=== PATIENT | female | born 1995 | race African-American/Black ===

== ENCOUNTER 2021-03-24 10:07 | Inpatient (IN) | payer OTHER ==
[2021-03-24] MEDS: ELECTROLYTE-148 SOLN 1,000 ML IV SCH ×2 (11:00→17:07)
[2021-03-24] MEDS ORDERED: OXYTOCIN 30 UNITS in 0.9% NS 30 UNIT/500 ML INFUS.BAG IVPB SCH (11:30)
[2021-03-24 11:36] VITALS: BMI 34.1
[2021-03-24] MEDS ORDERED: FENTANYL/BUPIVACAINE/NS/PF - PCEA - 50 ML DISP.SYRIN EP ONE ×3 (12:02→19:30)
[2021-03-24] MEDS ORDERED: BUPIVACAINE HCL/PF 0.25% (2.5MG/ML) 10 ML VIAL ONE (12:16)
[2021-03-24] MEDS ORDERED: NALOXONE HCL 0.4 MG/ML VIAL IVPUSH PRN (12:41)
[2021-03-24] MEDS ORDERED: FENTANYL/BUPIVACAINE/NS/PF - PCEA - 50 ML DISP.SYRIN EP SCH ×2 (12:45→13:31)
[2021-03-24] MEDS ORDERED: ePHEDrine SULFATE 50 MG/1 ML AMPULE ONE ×2 (12:49→19:06)
[2021-03-24] MEDS ORDERED: OXYTOCIN 30 UNITS in 0.9% NS 30 UNIT/500 ML INFUS.BAG IVPB ONE (13:29)
[2021-03-24] MEDS ORDERED: LIDOCAINE HCL 1% PRESERVATIVE FREE - 30ML VIAL ONE (18:16)
[2021-03-24] MEDS ORDERED: OXYTOCIN 20 UNITS in 0.9% NS 20 UNIT/1,000 ML INFUS.BAG IV ONE (18:16)
[2021-03-24] MEDS ORDERED: morphine SULFATE/PF 1 MG/2 ML (2cc Syringe - QUVA) ONE (20:47)
[2021-03-24] MEDS ORDERED: PHENYLEPHRINE HCL 10 MG/1 ML SINGLE DOSE VIAL ONE (20:47)
[2021-03-24] MEDS ORDERED: CITRIC ACID/SODIUM CITRATE 30 ML UNIT-DOSE CUP PO ONE (20:50)
[2021-03-24] MEDS ORDERED: ceFAZolin SODIUM 1 GM VIAL ONE ×2 (21:06)
[2021-03-24] MEDS: OXYTOCIN 20 UNITS in 0.9% NS 20 UNIT/1,000 ML INFUS.BAG IV SCH (21:13)
[2021-03-24] MEDS ORDERED: METHYLERGONOVINE MALEATE 0.2 MG/1 ML AMP IM PRN (21:39)
[2021-03-24] MEDS ORDERED: ACETAMINOPHEN 325 MG TABLET (FP) PO PRN ×2 (21:39→21:40)
[2021-03-24] MEDS ORDERED: IBUPROFEN 600 MG TABLET (FP) PO PRN (21:40)
[2021-03-24] MEDS ORDERED: ONDANSETRON 4 MG/2 ML VIAL IVPUSH PRN (21:40)
[2021-03-24] MEDS: IBUPROFEN 800 MG/8 ML IJ IVPB PRN (22:53)
[2021-03-24] MEDS ORDERED: IBUPROFEN 800 MG/8 ML IJ IVPB ONE (22:53)
[2021-03-25] MEDS: FERROUS SO4 325 MG TABLET (FP) PO SCH ×3 (00:39→22:45)
[2021-03-25] MEDS: OXYTOCIN 20 UNITS in 0.9% NS 20 UNIT/1,000 ML INFUS.BAG IV SCH (06:06)
[2021-03-25 08:14] LABS: HEMATOCRIT 28.7 % (32.4-45.2); HEMOGLOBIN 9.8 GM/dL (10.7-15.3); LYMPH % 6.5 % (8-40); MCHC 34.2 g/dl (32.0-36.0); MEAN CELL VOLUME 87.6 fl (80-96); MEAN PLT VOLUME 7.1 fl (7.5-11.1); MONO % 5.3 % (3.8-10.2); NEUT % 88.2 % (42.8-82.8); PLATELET COUNT 203 10^3/uL (134-434); RBC 3.28 M/mm3 (3.60-5.2); RDW 13.7 % (11.6-15.6); WHITE BLOOD COUNT 17.8 K/mm3 (4.0-10.0)
[2021-03-25] MEDS ORDERED: FLU VACC QS2021-22(6MOS UP)/PF 60 MCG/0.5 ML SYRINGE IM ONE (10:00)
[2021-03-25] MEDS ORDERED: DIPHTH,PERTUSS(ACELL),TET 0.5 ML DISP.SYRIN IM ONE (10:00)
[2021-03-25] MEDS: PRENATAL VITAMINS W/ FOLIC ACID TABLET (FP) PO SCH (11:00)
[2021-03-25] MEDS: IBUPROFEN 800 MG/8 ML IJ IVPB PRN (11:15)
[2021-03-25] MEDS: SIMETHICONE 80 MG TAB.CHEW (FP) PO PRN ×2 (18:50→22:45)
[2021-03-25] MEDS: IBUPROFEN 600 MG TABLET (FP) PO PRN ×2 (18:50→22:45)
[2021-03-25] MEDS ORDERED: BISACODYL 10 MG SUPP.RECT RC PRN (21:39)
[2021-03-26] MEDS: IBUPROFEN 600 MG TABLET (FP) PO PRN ×2 (09:27→22:30)
[2021-03-26] MEDS: FERROUS SO4 325 MG TABLET (FP) PO SCH ×2 (09:28→22:00)
[2021-03-26] MEDS: PRENATAL VITAMINS W/ FOLIC ACID TABLET (FP) PO SCH (09:28)
[2021-03-26] MEDS: oxyCODONE HCL 5 MG TABLET PO PRN ×2 (11:05→20:13)
[2021-03-26] MEDS: SIMETHICONE 80 MG TAB.CHEW (FP) PO PRN (20:09)
[2021-03-27 08:39] LABS: BASO % 0.2 % (0-2.0); EOS % 1.4 % (0-4.5); HEMOGLOBIN 8.9 GM/dL (10.7-15.3); LYMPH % 17.5 % (8-40); MCH 30.2 pg (25.7-33.7); MCHC 34.3 g/dl (32.0-36.0); MEAN PLT VOLUME 6.7 fl (7.5-11.1); MONO % 7.8 % (3.8-10.2); NEUT % 73.1 % (42.8-82.8); PLATELET COUNT 222 10^3/uL (134-434); RBC 2.96 M/mm3 (3.60-5.2); RDW 13.9 % (11.6-15.6); WHITE BLOOD COUNT 8.3 K/mm3 (4.0-10.0)
[2021-03-27] MEDS: FERROUS SO4 325 MG TABLET (FP) PO SCH (09:28)
[2021-03-27] MEDS: PRENATAL VITAMINS W/ FOLIC ACID TABLET (FP) PO SCH (09:28)
[2021-03-27 10:01] VITALS: BP 105/69; PULSE 76; TEMP 97.7
== END 2021-03-27 14:10 | disposition home or self-care (01) | DRG 540 ==
LOC: JDEL 10:07 → JLDR 10:40 → J3W 23:05
PROVIDERS: ADMIT Obstetrics & Gynecology; ATTEND Obstetrics & Gynecology
PROC: 10D00Z1 Extraction of Products of Conception, Low, Open Approach (ICD-10-PCS; principal; 2021-03-24)
DX: O36.8330 Maternal care for abnormalities of the fetal heart rate or rhythm, third trimester, not applicable or unspecified (principal); O98.413 Viral hepatitis complicating pregnancy, third trimester; B19.10 Unspecified viral hepatitis B without hepatic coma; Z3A.40 40 weeks gestation of pregnancy; Z37.0 Single live birth
CPT/HCPCS: 36415; 59025; 80048; 85025; 85610; 85730; 86780; 86850; 86900; 86901; 88307-TC; 90686; 90715; C9803-CS; G0008; G0463-25; U0003; U0005